=== PATIENT | male | born 1990 | race Hispanic/Latino ===

== ENCOUNTER 2016-04-29 19:19 | Emergency (ER) | payer SELFPAY ==
[~2016-04-29] VITALS: Ht 175.3 cm; Wt 7.3 kg
[~2016-04-29 19:19] MED LIST: ONDA8TAB7 PO
[2016-04-29 19:24] VITALS: BP 111/75; PULSE 95; RESP 16; O2SAT 100
--- NOTE | 2016-04-29 19:36 | ED.REPORT ---
HPI-Rash / Abscess Date of Service Apr 29, 2016 ED Provider: The patient is a 25 year old male who presents to the emergency department complaining of sores to his right wrist and right foot that he first noticed 8- 9 days ago. He has noticed some purulent drainage. The sores have been itchy. He has cleaned the areas and applied over the counter ointment with no improvement. He has not had similar symptoms in the past. He denies fever, chills, nausea or vomiting. Nursing Notes Stated Complaint: HAND & FOOT INFECTIONS Chief Complaint: Skin Rash/Abscess Nursing Notes Reviewed: Yes Allergies: Coded Allergies: No Known Allergies (Unverified , 04/29/16) Scheduled Sulfamethoxazole/Trimeth 800-160 mg (Bactrim DS) 1 Each Tablet 1 TABLET PO BID Scheduled PRN Ondansetron ODT (Zofran ODT) 8 Mg Tablet 8 MG PO QID PRN PRN For Nausea General Time Seen by MD: 19:36 Chief Complaint Rash Hx Obtained From: Patient Arrived By: Walk-in Onset Occurred: More than a week ago... Symptom Duration: Since onset Location: : Foot: Hand Quality: Itching Severity: Current: Moderate Severity: Maximum: Moderate Recent Healthcare: No recent hospitalization Similar Sx Previous: No Past Medical History Past Medical History Negative Past Surgical History Reports: Appendectomy Family History Noncontributory Smoking History Current Every Day Smoker Social History Other Social History: Good social support, Local resident Ambulatory Status Independent Review of Systems Constitutional: Denies: Chills, Fever GI: Denies: Nausea, Vomiting Skin: Reports Itching, Reports Rash, Reports Swelling Complete sys rev & neg: except as marked. Physical Exam Initial Vital Signs Initial VS: Reviewed Head / Eyes: Atraumatic, Normocephalic, PERRL ENT: Mucous membranes moist, Conjunctiva normal, No scleral icterus Neck: Supple, Non-tender, Full range of motion Respiratory: Breath sounds normal, Clear to auscultation, No respiratory distress Cardiovascular: Regular rate & rhythm, Heart sounds normal, Intact distal pulses Abdomen / GI: Soft, Non-tender, No guarding, No rebound, No distention Extremities: Vascular intact, Neuro intact, No swelling, No tenderness Neurologic: Alert, Oriented, Nonfocal Psychiatric: Mood/affect normal, Behavior normal, Normal thought content General/Constitutional: Awake, Alert, Well appearing Skin: Color NL Rash / Lesion Notes: He has a 1 cm laceration to the medial right wrist. There is no fluctuance or drainage. There is also a 1 cm ulceration on his right foot. It is not warm to the touch. There is some mild surrounding erythema. There is no fluctuance. Re-Eval/Medical Decision Source of Hx: Old records Re-Evaluation/Progress : Time of Eval: 20:02 Re-Evaluation/Progress Note: Discussed exam findings, diagnosis, and plan for discharge. All questions were addressed. Counseled Regarding: Diagnosis, Need for follow-up, When/why to return to ED Discharge & Departure Impression: Primary Impression: Cellulitis Site of cellulitis: extremity Laterality: right Disposition: Home Discharge Condition All VS Reviewed: Yes Condition: Stable Patient Instructions: Cellulitis (ED) Additional Instructions: Thank you for entrusting us with you care today. I have written you a prescription for Bactrim. We have given you your first dose in the emergency department. Fill the prescription tomorrow and take this as prescribed for 10 days. Seek care if the sores are not improving by next week. You can return to the emergency department for any new or concerning symptoms. Referrals: [facility] Scribe Attestation Portions of this note were transcribed by Evonne Palencia. I, Dr. Thompson personally performed the history, physical exam and medical decision-making; I reviewed and confirmed the accuracy of the information in the transcribed note. Signed by: Nj Luna, 04/29/2016 at 2030. Williams Thompson DO Apr 29, 2016 19:36 Evonne Palencia Apr 29, 2016 20:05 Signed by: Nj Luna, 04/29/2016 at 2030. Williams Thompson DO Apr 29, 2016 19:36 Evonne Palencia Apr 29, 2016 20:05
[2016-04-29] MEDS ORDERED: Trimethoprim-Sulfa 160 mg-800 mg Tablet PO ONE (20:20)
[2016-04-29] MEDS ORDERED: SULF1TAB7 PO (20:26)
== END 2016-04-29 20:34 | disposition home or self-care (01) ==
LOC: SED 19:19
DX: L03.113 Cellulitis of right upper limb (principal); L03.115 Cellulitis of right lower limb; F17.200 Nicotine dependence, unspecified, uncomplicated